=== PATIENT | female | born 1980 | race Caucasian/White ===

== ENCOUNTER 2021-05-02 21:15 | Emergency (ER) | payer BC, OTHER ==
[~2021-05-02 21:15] MED LIST: METFORMIN ER1000 MG PO; PRENATAL VITAM1 EAC3 PO; PRILOSEC10 M1 PO
[2021-05-02 21:57] LABS: HEMOGLOBIN 14.2 gm/dl (12.3-15.3); RED BLOOD COUNT 5.03 M/UL (4.00-5.10); WHITE BLOOD COUNT 6.7 K/UL (4.5-11.0)
[2021-05-02 22:14] LABS: BUN/CREATININE RATIO 14 (0-10)
[2021-05-03] MEDS ORDERED: LODINE CAP 300300 MG PO (00:01)
[2021-05-03] MEDS ORDERED: VENTOLIN HFA 66.7 GM INH (00:01)
[2021-05-03] MEDS ORDERED: ZOFRAN ODT 4 MG4 MG PO (00:01)
== END 2021-05-03 00:04 | disposition home or self-care (01) ==
LOC: ER1 21:15
PROVIDERS: Physician Assistant
DX: U07.1 COVID-19 (principal); F17.210 Nicotine dependence, cigarettes, uncomplicated; Z90.49 Acquired absence of other specified parts of digestive tract; Z88.0 Allergy status to penicillin
CPT/HCPCS: 0240U; 71045; 80053; 81001; 84703; 85025; 87086; 99284